=== PATIENT | male | born 1965 | race Caucasian/White ===

== ENCOUNTER 2018-12-05 12:25 | Emergency (ER) | payer BC, OTHER ==
--- NOTE | 2018-12-05 12:29 | EDM.PDOC ---
ED HPI GENERAL MEDICAL PROBLEM - General Chief Complaint: General Stated Complaint: bee sting to left cheek Time Seen by Provider: 12/05/18 12:28 Source of Information: Reports: Patient. Denies: Old Records (No [facility] records available) History Limitations: Reports: No Limitations - History of Present Illness INITIAL COMMENTS - FREE TEXT/NARRATIVE: Patient drove himself to the emergency room via private automobile for evaluation of a Workmen's Compensation injury, which occurred at about 11:45 AM this morning. He was performing his normal work duties when he was accidentally stung in the left cheek/periorbital region by either a bee or wasp. He did try to get the stinger out, however he did not find one prior to arrival. No other treatment or medications prior to arrival. He does not have a previous history of significant allergic reactions to insect stings or bites. Patient denies any dysphagia, dyspnea, angioedema, or other allergic-type symptoms. He rates his discomfort at 4/10. His tetanus booster is apparently up-to-date with last immunization one year ago by his history. The patient denies any chest pain/ pressure, heart flutter, dizziness, orthostasis, orthopnea, diaphoresis, paresthesias, recent decreased exercise tolerance, or any other anginal-type symptoms. No recent history of abdominal pain, heartburn, nausea, diarrhea, melena, gross hematochezia, or any food intolerance, including fatty foods, etc.. The patient also denies any recent fever, cough, wheezing, dyspnea, etc.. He denies any previous problems with his blood pressure or history of hypertension. Onset: Today, Sudden Onset Date: 12/05/18 Onset Time: 11:45 Duration: Constant Location: Reports: Face (As above) Quality: Reports: Ache, Burning Severity: Mild Improves with: Reports: None Worsens with: Reports: None Context: Reports: Other (As above). Denies: Sick Contact, Trauma Associated Symptoms: Reports: Rash. 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 [No Known Home Meds] 12/05/18 [History] Past Medical History Cardiovascular History: Reports: None. Denies: Hypertension Musculoskeletal History: Reports: Arthritis, Back Pain, Chronic, Fracture, Osteoarthritis, Other (See Below) Other Musculoskeletal History: Previous left knee meniscal tear requiring arthroscopic surgery in about 2009 as below. Previous midshaft left leg angulated open tibial fracture in his early 20s requiring surgery as below. Endocrine/Metabolic History: Reports: Obesity/BMI 30+ - Past Surgical History HEENT Surgical History: Reports: Oral Surgery, Other (See Below) Other HEENT Surgeries/Procedures: Multiple teeth extractions Male Surgical History: Reports: Circumcision, Other (See Below) Other Male Surgeries/Procedures: Circumcision as an infant. Musculoskeletal Surgical History: Reports: Arthroscopic Knee, Arthroscopic Procedure, ORIF, Other (See Below) Other Musculoskeletal Surgeries/Procedures:: Arthroscopic left knee meniscal repair in about 2009. ORIF of the left tibial fracture in his early 20s as above. 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 ED EXAM, GENERAL - Physical Exam Exam: See Below Exam Limited By: No Limitations General Appearance: Alert, WD/WN, No Apparent Distress Eye Exam: Bilateral Eye: EOMI, Normal Inspection, PERRL Ears: Normal External Exam, Normal Canal, Hearing Grossly Normal, Normal TMs Nose: Normal Inspection, Normal Mucosa, No Blood Throat/Mouth: Normal Inspection, Normal Lips, Normal Teeth (Multiple missing teeth), Normal Gums, Normal Oropharynx, Normal Voice, No Airway Compromise, Other (No uvular swelling or evidence of angioedema). No: Dysphagia, Perioral Cyanosis Head: Normocephalic, Facial Swelling (4 cm in diameter area of trace erythema and mild to moderate swelling over the left cheek and periorbital region with small stinger noted in the left lateral cheek region), Facial Tenderness ( Minimal palpation pain at sting site). No: Sinus Tenderness Neck: Normal Inspection, Supple, Non-Tender, Full Range of Motion. No: Lymphadenopathy (L), Lymphadenopathy (R), Thyromegaly Respiratory/Chest: No Respiratory Distress, Lungs Clear, Normal Breath Sounds, No Accessory Muscle Use, Chest Non-Tender. No: Pleural Rub, Retractions Cardiovascular: Normal Peripheral Pulses, Regular Rate, Rhythm, No Edema, No Gallop, No JVD, No Murmur, No Rub. No: Gallop/S3, Gallop/S4, Friction Rub Peripheral Pulses: 2+: Radial (L), Radial (R) GI/Abdominal: Normal Bowel Sounds, Soft, Non-Tender, No Organomegaly, No Distention, No Abnormal Bruit, No Mass, Other (Obese). No: Guarding (Male) Exam: Deferred Rectal (Males) Exam: Deferred Back Exam: Normal Inspection, Full Range of Motion. No: CVA Tenderness (L), CVA Tenderness (R), Muscle Spasm Extremities: Normal Inspection, Normal Range of Motion, Non-Tender, No Pedal Edema, Normal Capillary Refill. No: Jonh's Sign Neurological: Alert, Oriented, CN II-XII Intact, Normal Cognition, Normal Gait, No Motor/Sensory Deficits Psychiatric: Normal Affect, Normal Mood Skin Exam: Erythema (As above), Wound/Incision (As above). No: Diaphoretic, Lymphangitis Lymphatic: No Adenopathy Course - Vital Signs Last Recorded V/S: Last Vital Signs Temp 36.8 C 12/05/18 12:27 Pulse 86 12/05/18 12:45 Resp 18 12/05/18 12:27 BP 136/89 12/05/18 12:45 Pulse Ox 100 12/05/18 12:27 Vital Signs - 24 hr 12/05/18 12/05/18 12:27 12:45 Temperature [ 36.8 C Temporal] Pulse, 100 86 Peripheral [ Pulse Oximetry] Respiratory 18 Rate Blood Pressure 141/92 H 136/89 [Left Arm] O2 Sat by Pulse 100 Oximetry - Orders/Labs/Meds Orders: Active Orders 24 hr Category Date Time Status Vaccines to be Administered [RC] PER UNIT ROUTINE Care 12/05/18 13:31 Active Obtain Past Medical Record [OM.PC] Routine Oth 12/05/18 12:37 Active Labs: None Meds: Medications Discontinued Medications Generic Name Dose Route Start Last Admin Trade Name Hanane PRN Reason Stop Dose Admin Diphtheria/Tetanus/Acell Pertussis 0.5 ml 12/05/18 13:31 12/05/18 13:40 Adacel IM 12/05/18 13:32 0.5 ml .ONCE ONE Administration Methylprednisolone Acetate 80 mg 12/05/18 12:37 12/05/18 13:25 Depo-Medrol IM 12/05/18 12:38 80 mg ONETIME ONE Administration - Radiology Interpretation Free Text/Narrative:: None Departure - Departure Time of Disposition: 13:55 Disposition: Home, Self-Care 01 Condition: Good Clinical Impression: Obesity (BMI 35.0-39.9 without comorbidity), Elevated blood pressure reading Bee sting reaction Qualifiers: Encounter type: initial encounter Injury intent: accidental or unintentional Qualified Code(s): T63.441A - Toxic effect of venom of bees, accidental ( unintentional), initial encounter Osteoarthritis Qualifiers: Osteoarthritis location: multiple joints - Discharge Information *PRESCRIPTION DRUG MONITORING PROGRAM REVIEWED*: Not Applicable *COPY OF PRESCRIPTION DRUG MONITORING REPORT IN PATIENT MIRNA: Not Applicable Instructions: Bee, Wasp, or Hornet Sting, Adult Referrals: PCP,Unknown [Primary Care Provider] - Forms: ED Department Discharge, ED Return to Work/School Form Additional Instructions: 1. Follow up with your regular provider in 10-14 days as needed, if symptoms persist. Bring these discharge instructions with you to that visit.. 2. Tylenol 650 mg by mouth every 4 hours and/or OTC ibuprofen 2-3 tabs by mouth every 6 hours with food as directed./needed. You may stagger these medications for 48-72 hours only, which essentially means that you are receiving a pain medication about every 2 hours. 3. Antibacterial soap wash/soak with subsequent antibacterial dressing such as Neosporin, etc. as directed 2 times per day until the wound site completely heals. Keep the area clean and dry with activity restrictions as discussed. Never use hydrogen peroxide for wound care. 4. Work excuse- See Form 5. Sedation precautions with Benadryl as discussed 6. Continue to observe your blood pressures closely with your regular provider as discussed 7. Ice Packs as needed to left cheek as discussed 8. Immediately after this visit verify that your cellular telephone's voicemail has been activated and is empty. Also verify that your home telephone 's answering machine is operating properly and has space to receive messages. Note that it is sometimes necessary for us to be able to contact you at a later date to discuss your medical care. 9. Please remember that we are ALWAYS here for you and want to answer any questions you may have. Feel free to call the hospital any time and we call you back MARCIA. - Problem List & Annotations (1) Bee sting reaction SNOMED Code(s): 710240655, 421426601 Code(s): T63.441A - TOXIC EFFECT OF VENOM OF BEES, ACCIDENTAL, INIT Status : Acute Priority: High Current Visit: Yes Onset Date: 12/05/18 Annotation/Comment:: Stinger was removed with forceps after cleansing with alcohol wipes with minimal difficulty and without complications. IM Depo-Medrol given in the emergency room. The patient did not wish to have an IM Benadryl injection. No evidence of angioedema or other anaphylactic reaction, although precautions were given to the patient. Symptomatic relief with Benadryl and wound care as per discharge instructions were extensively discussed. Sedation precautions were given. Work excuse and Workmen's Compensation forms were completed. The patient thought that he had a tetanus booster about one year ago at the [facility] in [place], however no evidence of previous tetanus booster per [facility]. DTaP was given. Qualifiers: Encounter type: initial encounter Injury intent: accidental or unintentional Qualified Code(s): T63.441A - Toxic effect of venom of bees, accidental (unintentional), initial encounter (2) Elevated blood pressure reading SNOMED Code(s): 77512223 Code(s): R03.0 - ELEVATED BLOOD-PRESSURE READING, W/O DIAGNOSIS OF HTN Status: Acute Priority: Medium Current Visit: Yes Onset Date: 12/05/18 Annotation/Comment:: Improved prior to discharge without therapy. No previous history of hypertension. Continue to observe closely by his regular provider. (3) Obesity (BMI 35.0-39.9 without comorbidity) SNOMED Code(s): 737515367, 663890939 Code(s): E66.9 - OBESITY, UNSPECIFIED Status: Chronic Priority: Medium Current Visit: Yes Annotation/Comment:: Weight loss in moderation advisable. Close follow-up by regular provider. (4) Osteoarthritis SNOMED Code(s): 456685598 Code(s): M19.90 - UNSPECIFIED OSTEOARTHRITIS, UNSPECIFIED SITE Status: Chronic Priority: Medium Current Visit: Yes Annotation/Comment:: Stable by history. Qualifiers: Osteoarthritis location: multiple joints - Problem List Review Problem List Initiated/Reviewed/Updated: Yes - My Orders Last 24 Hours: My Active Orders 12/05/18 12:37 Obtain Past Medical Record [OM.PC] Routine 12/05/18 13:31 Vaccines to be Administered [RC] PER UNIT ROUTINE - Assessment/Plan Last 24 Hours: My Active Orders 12/05/18 12:37 Obtain Past Medical Record [OM.PC] Routine 12/05/18 13:31 Vaccines to be Administered [RC] PER UNIT ROUTINE Assessment:: As above Plan: As above. Extensive precautions were given to the patient, who is in agreement with the treatment plan. See Patient Instructions for further treatment and plan.
[2018-12-05] MEDS ORDERED: methylPREDNISolone Acetate 80 MG/ML SDV IM ONE (12:37)
[2018-12-05] MEDS ORDERED: Diphtheria,Pertussis(Acell),Tetanus Vaccine 0.5 ML SDV IM ONE (13:31)
== END 2018-12-05 13:53 | disposition home or self-care (01) ==
LOC: LL.ED 12:25
DX: T63.441A Toxic effect of venom of bees, accidental (unintentional), initial encounter (principal); R03.0 Elevated blood-pressure reading, without diagnosis of hypertension; E66.9 Obesity, unspecified; Z68.35 Body mass index [BMI] 35.0-35.9, adult; Z23 Encounter for immunization
CPT/HCPCS: 90471; 90715; 96374; 99282; J1040; 99283

== ENCOUNTER 2019-06-09 23:35 | Observation (INO) | payer BC, OTHER ==
[2019-06-09] MEDS ORDERED: Sodium Chloride 0.9% 10 ML Syringe FLUSH PRN (23:48)
[2019-06-09] MEDS ORDERED: Ketorolac 30 MG/ML SDV IVPUSH ONE (23:59)
[2019-06-10] MEDS ORDERED: Morphine 2 MG/ML Syringe IVPUSH ONE (00:13)
[2019-06-10] MEDS ORDERED: Ondansetron 4 MG/2 ML SDV IVPUSH ONE (00:13)
[2019-06-10] MEDS ORDERED: Sodium Chloride 0.9% 1,000 ML IV ONE (00:14)
--- NOTE | 2019-06-10 00:19 | EDM.PDOC ---
ED HPI GENERAL MEDICAL PROBLEM - General Chief Complaint: Back Pain or Injury Stated Complaint: low back pain Time Seen by Provider: 06/09/19 23:59 Source of Information: Reports: Patient History Limitations: Reports: No Limitations - History of Present Illness INITIAL COMMENTS - FREE TEXT/NARRATIVE: Patient complains of sharp steady back pain. Describes it as centralized/ lumbar area, radiating around sides to front/center of abdomen. Radiates around left side more than right. Nothing specifically makes it better or worse ( position/going to bathroom/eating/drinking). Emesis x2 today. Pain started last night, went away, then returned today. Denies chronic medical problems. No fevers/chills No history of similar pain in past. No bowel changes or urinary changes. No neuro changes. Hx of back issues per medical record. Lower Back Pain Score (Numeric/FACES): 10 - Related Data Allergies Allergy/AdvReac Type Severity Reaction Status Date / Time No Known Allergies Allergy Verified 06/09/19 23:41 Home Meds: Home Meds Meloxicam [Mobic] 7.5 mg PO BID 06/09/19 [History] Past Medical History Cardiovascular History: Reports: None. Denies: Hypertension Musculoskeletal History: Reports: Arthritis, Back Pain, Chronic, Fracture, Osteoarthritis, Other (See Below) Other Musculoskeletal History: Previous left knee meniscal tear requiring arthroscopic surgery in about 2009 as below. Previous midshaft left leg angulated open tibial fracture in his early 20s requiring surgery as below. Endocrine/Metabolic History: Reports: Obesity/BMI 30+ - Past Surgical History HEENT Surgical History: Reports: Oral Surgery, Other (See Below) Other HEENT Surgeries/Procedures: Multiple teeth extractions Male Surgical History: Reports: Circumcision, Other (See Below) Other Male Surgeries/Procedures: Circumcision as an . Musculoskeletal Surgical History: Reports: Arthroscopic Knee, Arthroscopic Procedure, ORIF, Other (See Below) Other Musculoskeletal Surgeries/Procedures:: Arthroscopic left knee meniscal repair in about 2009. ORIF of the left tibial fracture in his early 20s as above. 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 Denies: Shortness of Breath Cardiovascular: Reports: No Symptoms. Denies: Chest Pain GI/Abdominal: Reports: Nausea, Vomiting, Other (back pain radiates towards front of abdomen). Denies: Constipation, Diarrhea, Hematochezia : Reports: No Symptoms Musculoskeletal: Reports: Back Pain Skin: Reports: No Symptoms Neurological: Reports: No Symptoms Psychiatric: Reports: No Symptoms ED EXAM, GENERAL - Physical Exam Exam: See Below Exam Limited By: No Limitations General Appearance: Alert, Moderate Distress (restless), Obese Eye Exam: Bilateral Eye: EOMI, PERRL Ears: Hearing Grossly Normal Nose: No: Nasal Deformity, Nasal Swelling, Nasal Drainage Throat/Mouth: Normal Lips, Normal Voice, No Airway Compromise Head: Atraumatic, Normocephalic Neck: Supple, Non-Tender Respiratory/Chest: No Respiratory Distress, Lungs Clear, Normal Breath Sounds, No Accessory Muscle Use, Chest Non-Tender Cardiovascular: No Murmur, Tachycardia GI/Abdominal: Normal Bowel Sounds, Soft, Non-Tender, Other (abdomen obese) (Male) Exam: Deferred Rectal (Males) Exam: Deferred Back Exam: No: CVA Tenderness (L), CVA Tenderness (R), Muscle Spasm, Paraspinal Tenderness, Vertebral Tenderness Extremities: Normal Inspection, Normal Range of Motion, Non-Tender, No Pedal Edema, Normal Capillary Refill, Other (negative straight leg raise) Neurological: Alert, Oriented, Normal Cognition, No Motor/Sensory Deficits Psychiatric: Anxious Skin Exam: Warm, Dry, Intact, Normal Color EKG INTERPRETATION EKG Date: 06/10/19 Time: 02:54 Rhythm: Other (Sinus tach 1st degree AV block) Rate (Beats/Min): 102 [place]: Normal P-Wave: Present QRS: Normal ST-T: Normal QT: Prolonged Comparison: NA - No Prior EKG Course - Vital Signs Last Recorded V/S: Last Vital Signs Temp 35.1 C L 06/09/19 23:36 Pulse 108 H 06/09/19 23:36 Resp 20 06/09/19 23:36 BP 152/102 H 06/09/19 23:36 Pulse Ox 99 06/09/19 23:36 - Orders/Labs/Meds Orders: Active Orders 24 hr Category Date Time Status Abdomen Pelvis wo Cont [CT] Stat Exams 06/10/19 00:12 Taken Morphine Med 06/10/19 00:23 Active 2 mg IVPUSH Q1H PRN Sodium Chloride 0.9% [Saline Flush] Med 06/09/19 23:48 Active 10 ml FLUSH ASDIRECTED PRN Saline Lock Insert [OM.PC] Routine Oth 06/09/19 23:48 Ordered Medication Orders Morphine Sulfate (Morphine) 2 mg IVPUSH Q1H PRN PRN Reason: Pain Last Admin: 06/10/19 02:08 Dose: 2 mg Sodium Chloride (Saline Flush) 10 ml FLUSH ASDIRECTED PRN PRN Reason: Keep Vein Open Labs: Laboratory Tests 06/09/19 06/10/19 06/10/19 Range/Units 23:49 00:15 00:15 WBC 8.5 (4.0-10.2) K/uL RBC 4.47 (4.33-5.41) M/uL Hgb 14.6 (13.1-16.8) g/dL Hct 42.6 (39.0-49.0) % MCV 95.3 (84.0-98.0) fL MCH 32.7 (28.2-33.3) pg MCHC 34.3 (31.7-36.0) g/dL RDW 13.5 (11.2-14.1) % Plt Count 317 (150-350) K/uL Neut % (Auto) 74.1 (45.0-80.0) % Lymph % (Auto) 15.2 (10.0-50.0) % [place] % (Auto) 6.6 (2.0-14.0) % Eos % (Auto) 0.7 (0.0-5.0) % Baso % (Auto) 3.4 H (0.0-2.0) % Neut # (Auto) 6.31 (1.40-7.00) K/uL Lymph # (Auto) 1.29 (0.50-3.50) K/uL [place] # (Auto) 0.56 (0.00-1.00) K/uL Eos # (Auto) 0.06 (0.00-0.50) K/uL Baso # (Auto) 0.29 H (0.00-0.20) K/uL Sodium 140 (136-145) mmol/L Potassium 4.2 (3.5-5.1) mmol/L Chloride 103 (98-107) mmol/L Carbon Dioxide 26.9 (21.0-32.0) mmol/L BUN 18 (7-18) mg/dL Creatinine 0.91 (0.51-1.17) mg/dL Est Cr Clr Drug Dosing 101.14 mL/min Estimated GFR (MDRD) > 60 mL/min Glucose 125 H (74-106) mg/dL Calcium 8.8 (8.5-10.1) mg/dL Magnesium (1.8-2.4) mg/dL Total Bilirubin 0.2 (0.2-1.0) mg/dL AST 21 (15-37) U/L ALT 33 (12-78) U/L Alkaline Phosphatase 81 (46-116) IU/L Total Protein 8.1 (6.4-8.2) g/dL Albumin 3.9 (3.4-5.0) g/dL Specimen Type Urinvoid Urine Color Light yellow Urine Appearance Cloudy Urine pH 7.0 (5.0-9.0) Ur Specific [place] 1.025 (1.005-1.030) Urine Protein Negative (NEGATIVE) mg/dL Urine Glucose (UA) Negative (NEGATIVE) mg/dL Urine Ketones Negative (NEGATIVE) mg/dL Urine Occult Blood Negative (NEGATIVE) Urine Nitrite Negative (NEGATIVE) Urine Bilirubin Negative (NEGATIVE) Urine Urobilinogen 0.2 (0.2-1.0) E.U./dL Ur Leukocyte Esterase Negative (NEGATIVE) Urine RBC 0-5 /HPF Urine WBC 0-5 /HPF Ur Epithelial Cells Rare /LPF Amorphous Sediment Moderate H (0/HPF) /HPF Urine Bacteria Not seen (NONE TO FEW) /HPF 06/10/19 Range/Units 00:15 WBC (4.0-10.2) K/uL RBC (4.33-5.41) M/uL Hgb (13.1-16.8) g/dL Hct (39.0-49.0) % MCV (84.0-98.0) fL MCH (28.2-33.3) pg MCHC (31.7-36.0) g/dL RDW (11.2-14.1) % Plt Count (150-350) K/uL Neut % (Auto) (45.0-80.0) % Lymph % (Auto) (10.0-50.0) % [place] % (Auto) (2.0-14.0) % Eos % (Auto) (0.0-5.0) % Baso % (Auto) (0.0-2.0) % Neut # (Auto) (1.40-7.00) K/uL Lymph # (Auto) (0.50-3.50) K/uL [place] # (Auto) (0.00-1.00) K/uL Eos # (Auto) (0.00-0.50) K/uL Baso # (Auto) (0.00-0.20) K/uL Sodium (136-145) mmol/L Potassium (3.5-5.1) mmol/L Chloride (98-107) mmol/L Carbon Dioxide (21.0-32.0) mmol/L BUN (7-18) mg/dL Creatinine (0.51-1.17) mg/dL Est Cr Clr Drug Dosing mL/min Estimated GFR (MDRD) mL/min Glucose (74-106) mg/dL Calcium (8.5-10.1) mg/dL Magnesium 1.9 (1.8-2.4) mg/dL Total Bilirubin (0.2-1.0) mg/dL AST (15-37) U/L ALT (12-78) U/L Alkaline Phosphatase (46-116) IU/L Total Protein (6.4-8.2) g/dL Albumin (3.4-5.0) g/dL Specimen Type Urine Color Urine Appearance Urine pH (5.0-9.0) Ur Specific [place] (1.005-1.030) Urine Protein (NEGATIVE) mg/dL Urine Glucose (UA) (NEGATIVE) mg/dL Urine Ketones (NEGATIVE) mg/dL Urine Occult Blood (NEGATIVE) Urine Nitrite (NEGATIVE) Urine Bilirubin (NEGATIVE) Urine Urobilinogen (0.2-1.0) E.U./dL Ur Leukocyte Esterase (NEGATIVE) Urine RBC /HPF Urine WBC /HPF Ur Epithelial Cells /LPF Amorphous Sediment (0/HPF) /HPF Urine Bacteria (NONE TO FEW) /HPF Meds: Medications Generic Name Dose Route Start Last Admin Trade Name Frebeatrice PRN Reason Stop Dose Admin Morphine Sulfate 2 mg 06/10/19 00:23 06/10/19 02:08 Morphine IVPUSH 2 mg Q1H PRN Administration Pain Sodium Chloride 10 ml 06/09/19 23:48 Saline Flush FLUSH ASDIRECTED PRN Keep Vein Open Discontinued Medications Generic Name Dose Route Start Last Admin Trade Name Freq PRN Reason Stop Dose Admin Sodium Chloride 1,000 mls @ 500 mls/hr 06/10/19 00:14 06/10/19 00:36 Normal Saline IV 06/10/19 02:13 500 mls/hr .BOLUS ONE Administration Ketorolac Tromethamine 30 mg 06/09/19 23:59 06/10/19 00:01 Toradol IVPUSH 06/10/19 00:00 30 mg ONETIME ONE Administration Morphine Sulfate 2 mg 06/10/19 00:13 06/10/19 00:38 Morphine IVPUSH 06/10/19 00:14 2 mg ONETIME ONE Administration Ondansetron HCl 4 mg 06/10/19 00:13 Zofran IVPUSH 06/10/19 00:14 ONETIME ONE Tamsulosin HCl 0.4 mg 06/10/19 00:30 06/10/19 00:38 Flomax PO 06/10/19 00:31 0.4 mg ONETIME ONE Administration - Radiology Interpretation CT Results Date: 06/10/19 CT Results Time: 01:35 (No obvious contribution to pain noted on CT. Gallstones present. L4-L5 changes. No acute processes identified. ) - Re-Assessments/Exams Free Text/Narrative Re-Assessment/Exam: No focal findings on exam. Unable to elicit tenderness with palpation/ reproduce symptoms over patient's back/abdomen. UA normal. CBC/Chem overall unremarkable. Plan at this time is to give Toradol/MS/Zofran and get noncontrast scan to look for kidney stone/other abnormalities. 06/10/19 02:50 No obvious focal cause for patient's pain complaint identified on abdominal CT. Gallstones are present. No evidence of kidney stone. No recommendation made by Radiology for new scan using contrast. He has no pain with palpation of abdomen. Only could elicit mild discomfort with very sharp percussion of mid back area, left greater than right. No focal spine tenderness. Pain improved for awhile with the Toradol/MS but then returned. Patient uncomfortable. Differential includes musculoskeletal pain with radiation around sides/ radicular component. Again, no evidence of kidney stone. May need to consider atypical presentation for gall stone. Will admit observation. Consider US study of GB later today when US available. Departure - Departure Time of Disposition: 02:56 Disposition: Refer to Observation Condition: Good Clinical Impression: Mid-back pain, acute, Elevated blood pressure reading, Gallstones - Discharge Information *PRESCRIPTION DRUG MONITORING PROGRAM REVIEWED*: Not Applicable *COPY OF PRESCRIPTION DRUG MONITORING REPORT IN PATIENT [facility]: Not Applicable Forms: ED Department Discharge Sepsis Event Note - Evaluation Sepsis Screening Result: No Definite Risk - Focused Exam Vital Signs: Vital Signs Temp Pulse Resp BP Pulse Ox 06/09/19 23:36 35.1 C L 108 H 20 152/102 H 99 Date Exam was Performed: 06/10/19 Time Exam was Performed: 02:24 - Problem List & Annotations (1) Mid-back pain, acute SNOMED Code(s): 595274500 Code(s): M54.9 - DORSALGIA, UNSPECIFIED Status: Acute Priority: High Current Visit: Yes Onset Date: 06/09/19 Annotation/Comment:: Pain complaint near thoraco/lumbar junction. Radiates around sides to front of abdomen at times. Difficult to reproduce with palpation/percussion. CT abdomen negative for kidney stone. Noted to have gallstones present. Uncertain etiology. (2) Elevated blood pressure reading SNOMED Code(s): 66888053 Code(s): R03.0 - ELEVATED BLOOD-PRESSURE READING, W/O DIAGNOSIS OF HTN Status: Acute Priority: Medium Current Visit: Yes Onset Date: 12/05/18 Annotation/Comment:: Suspect elevation related to pain complaint. Observe trends. (3) Osteoarthritis SNOMED Code(s): 880179146 Code(s): M19.90 - UNSPECIFIED OSTEOARTHRITIS, UNSPECIFIED SITE Status: Chronic Priority: Medium Current Visit: No Annotation/Comment:: No acute changes per patient Qualifiers: Osteoarthritis location: multiple joints (4) Gallstones SNOMED Code(s): 627228966 Code(s): K80.20 - CALCULUS OF GALLBLADDER W/O CHOLECYSTITIS W/O OBSTRUCTION Status: Acute Priority: Medium Current Visit: Yes Annotation/Comment:: Noted to be present on CT scan. Uncertain if contributing to pain complaint. Anticipate US study of abdomen later today to further evaluate GB. (5) Obesity (BMI 35.0-39.9 without comorbidity) SNOMED Code(s): 002141170, 275776208 Code(s): E66.9 - OBESITY, UNSPECIFIED Status: Chronic Priority: Medium Current Visit: No Annotation/Comment:: Weight loss in moderation advisable. Close follow-up by regular provider. - Problem List Review Problem List Initiated/Reviewed/Updated: Yes - My Orders Last 24 Hours: My Active Orders 06/09/19 23:48 Sodium Chloride 0.9% [Saline Flush] 10 ml FLUSH ASDIRECTED PRN Saline Lock Insert [OM.PC] Routine 06/10/19 00:12 Abdomen Pelvis wo Cont [CT] Stat 06/10/19 00:23 Morphine 2 mg IVPUSH Q1H PRN - Assessment/Plan Admission H&P: Please use this note as an admission H&P Last 24 Hours: My Active Orders 06/09/19 23:48 Sodium Chloride 0.9% [Saline Flush] 10 ml FLUSH ASDIRECTED PRN Saline Lock Insert [OM.PC] Routine 06/10/19 00:12 Abdomen Pelvis wo Cont [CT] Stat 06/10/19 00:23 Morphine 2 mg IVPUSH Q1H PRN Assessment:: as above Plan: as above. Additional labs requested, including amylase/lipase. Consider US study later this morning. Observe for additional changes. Continue pain management. Patient's care to be taken over by this morning. Patient stable and suitable for general supervision
[2019-06-10] MEDS ORDERED: Morphine 2 MG/ML Syringe IVPUSH PRN (00:23)
[2019-06-10] MEDS ORDERED: Tamsulosin 0.4 MG Cap.ER PO ONE (00:30)
[2019-06-10 00:39] LABS: CHLORIDE,CL 103 mmol/L (98-107); SODIUM,NA 140 mmol/L (136-145)
[2019-06-10] MEDS ORDERED: methylPREDNISolone Sodium Succinate 125 MG/2 ML SDV IVPUSH ONE (02:43)
[2019-06-10] MEDS ORDERED: Ondansetron 4 MG/2 ML SDV IVPUSH PRN (02:46)
[2019-06-10] MEDS ORDERED: Cyclobenzaprine 10 MG Tab PO ONE (02:46)
[2019-06-10] MEDS: Ketorolac 30 MG/ML SDV IVPUSH SCH ×2 (07:16→12:28)
--- NOTE | 2019-06-10 12:10 | PCM.DCSUM1 ---
Discharge Summary - Hospital Course HPI Initial Comments: See emergency room note/admission H&P Brief History: See emergency room note/admission H&P Diagnosis: Stroke: No Modified Kechi Scale: No Symptoms at All Modified Kechi Scale Score: 0 - Discharge Data Discharge Date: 06/10/19 Discharge Disposition: Home, Self-Care 01 Condition: Good - Referral to Home Health Primary Care Physician: PCP None - Discharge Diagnosis/Problem(s) (1) Low back pain SNOMED Code(s): 482263123 ICD Code: M54.5 - LOW BACK PAIN Status: Acute Current Visit: Yes Problem Details: He did receive one dose of IV Solu-Medrol with aggressive IV Toradol, IV morphine, and oral Flexeril therapy with complete resolution of symptoms prior to discharge. 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 Right L4 radiculopathy by CT scan, however not symptomatic at this time. Close follow-up by regular provider with consideration of physical therapy, occupational therapy, orthopedic consultation, etc. depending on his clinical course. Otherwise symptomatic relief as per discharge instructions. Sedation precautions with Flexeril were discussed. Qualifiers: Chronicity: acute Back pain laterality: bilateral Sciatica presence: without sciatica Qualified Code(s): M54.5 - Low back pain (2) Osteoarthritis SNOMED Code(s): 315605816 ICD Code: M19.90 - UNSPECIFIED OSTEOARTHRITIS, UNSPECIFIED SITE Status: Chronic Priority: Medium Current Visit: Yes Problem Details: Complete resolution of patient's low back pain with aggressive therapy as above. Continue to observe closely by regular providers. Otherwise stable by history Qualifiers: Osteoarthritis location: multiple joints (3) Cholelithiasis SNOMED Code(s): 403859325 ICD Code: K80.20 - CALCULUS OF GALLBLADDER W/O CHOLECYSTITIS W/O OBSTRUCTION Status: Acute Priority: High Current Visit: Yes Onset Date: 06/10/19 Problem Details: Incidental finding in CT scan of the abdomen and pelvis with no evidence of urolithiasis, etc. Note that patient is completely nonsymptomatic today with normal amylase and lipase during this hospitalization. Low-fat, low-cholesterol diet at discharge. No direct indication for abdominal ultrasound today secondary to his resolve symptoms as above. Close follow-up by regular provider with surgical consultation depending on his clinical course. No exacerbation of patient's back pain or other symptoms with IV morphine during this hospitalization essentially eliminating gallbladder disease as etiology of his current symptoms. Qualifiers: Cholelithiasis location: gallbladder Cholecystitis presence: without cholecystitis (4) Obesity (BMI 35.0-39.9 without comorbidity) SNOMED Code(s): 125331604, 382781474 ICD Code: E66.9 - OBESITY, UNSPECIFIED Status: Chronic Priority: Medium Current Visit: Yes Problem Details: Weight loss in moderation advisable. Close follow-up by regular provider as per discharge instructions. Consider lipid profile. (5) First degree AV block SNOMED Code(s): 964738575 ICD Code: I44.0 - ATRIOVENTRICULAR BLOCK, FIRST DEGREE Status: Acute Priority: Medium Current Visit: Yes Onset Date: 06/10/19 Problem Details: No chest pain or anginal type symptoms with newly diagnosed first-degree AV block by EKG on admission. Observe for now. Note mild tachycardia time of discharge with medication adjustment, including initiation of low-dose Tenormin with caution at discharge. (6) Hypertension SNOMED Code(s): 52618796 ICD Code: I10 - ESSENTIAL (PRIMARY) HYPERTENSION Status: Acute Priority: High Current Visit: Yes Onset Date: 06/10/19 Problem Details: Initiate Tenormin at discharge as above. Close follow-up by regular provider. Qualifiers: Hypertension type: essential hypertension Qualified Code(s): I10 - Essential (primary) hypertension (7) Hepatic cyst SNOMED Code(s): 29256383 ICD Code: K76.89 - OTHER SPECIFIED DISEASES OF LIVER Status: Acute Priority: Medium Current Visit: Yes Onset Date: 06/10/19 Problem Details: Incidental finding by CT scan as below. Observe for now. Note normal LFTs. (8) Diverticulosis SNOMED Code(s): 773011368 ICD Code: K57.90 - DVRTCLOS OF INTEST, PART UNSP, W/O PERF OR ABSCESS W/O BLEED Status: Chronic Priority: Medium Current Visit: Yes Onset Date: Problem Details: Incidental finding by CT scan as below. Nonsymptomatic. Consider screening ultrasound, if this has not be conducted to this point - Patient Summary/Data Operative Procedure(s) Performed: None Complications: None Consults: None Labs Pending at D/C: None Recommended Follow-up Testing/Procedures: As per discharge instructions Planned Operative Procedure(s) after DC: None Hospital Course: The patient was placed in observation status for pain control of his bilateral low back pain with CT scan results as above/below. Patient responded extremely well to IV therapy as above with no complications during this hospitalization. - Patient Instructions Diet: Heart Healthy Diet Diet, Other: Strict low-fat, low-cholesterol, diverticulosis Activity: Apply Ice, As Tolerated Driving: May Drive Today (However not when using Flexeril) Showering/Bathing: May Shower Notify Provider of: Increased Pain, Nausea and/or Vomiting Other/Special Instructions: 1. Followup with your regular provider in 7-10 days as directed for reevaluation and recommended repeat CBC, comprehensive metabolic panel, amylase, lipase, TSH, 12 hour fasting lipid profile, EKG, and complete lumbar x-rays. Bring these discharge instructions with you to that visit. 2. BenGay or equivalent, heating pad, and/or ice packs as directed. 3. Tylenol 650 mg by mouth every 4 hours as needed and you may alternate this with your Mobic. 4. Further workup of your gallbladder disease depending on your clinical course and symptoms. Strict low-fat, low-cholesterol diet as above. 5. Sedation precautions with Flexeril as discussed. 6. Immediately after this visit verify that your cellular telephone's voicemail has been activated and is empty. Also verify that your home telephone's answering machine is operating properly and has space to receive messages. Note that it is sometimes necessary for us to be able to contact you at a later date to discuss your medical care. 7. Please remember that we are ALWAYS here for you and want to answer any questions you may have. Feel free to call the hospital any time and we call you back MARCIA. 8. Consider physical therapy/ occupational therapy and/or orthopedic surgeon/neurology consultations for your low back pain depending on your clinical course and symptoms. 9. Consider screening colonoscopy, if this has not been performed to this date. - Discharge Plan *PRESCRIPTION DRUG MONITORING PROGRAM REVIEWED*: Not Applicable *COPY OF PRESCRIPTION DRUG MONITORING REPORT IN PATIENT MIRNA: Not Applicable Prescriptions/Med Rec: Atenolol [Tenormin] 25 mg PO DAILY #30 tablet Home Medications: Home Meds Meloxicam [Mobic] 7.5 mg PO BID 06/09/19 [History] Atenolol [Tenormin] 25 mg PO DAILY #30 tablet 06/10/19 [Rx] Oxygen Therapy Mode: Room Air Patient Handouts: Chronic Back Pain, [id number], Cholelithiasis, [id number] , Hypertension, [id number], Diverticulosis, Heart-Healthy Eating Plan, Easy-to -Read, Fat and Cholesterol Restricted Eating Plan, [id number] Forms: ED Department Discharge Referrals: PCP,None [Primary Care Provider] - - Discharge Summary/Plan Comment DC Time >30 min.: Yes (Coordination of care ) Discharge Summary/Plan Comment: As above. Extensive precautions were given to the patient, who is in agreement with the treatment plan. See Patient Instructions for further treatment and plan. - General Info Date of Service: 06/10/19 Admission Dx/Problem (Free Text: 1. Low back pain 2. Hypertension Functional Status: Reports: Pain Controlled, Tolerating Diet, Ambulating, Urinating, New Symptoms. Denies: Incentive Spirometry Numeric/FACES Score: 0 - Review of Systems General: Reports: No Symptoms. Denies: Fever, Weakness, Fatigue, Malaise, Chills, Night Sweats, Appetite HEENT: Reports: No Symptoms. Denies: Ear Pain, Headaches, Sinus Congestion, Rhinitis, Visual Changes Pulmonary: Reports: No Symptoms. Denies: Shortness of Breath, Pleuritic Chest Pain, Cough, Sputum, Hemoptysis, Wheezing Cardiovascular: Reports: No Symptoms. Denies: Chest Pain, Palpitations, Dyspnea on Exertion, Orthopnea, PND, Edema, Lightheadedness Gastrointestinal: Reports: No Symptoms, Other (No bowel movement since admission ). Denies: Abdominal Pain, Constipation, Decreased Appetite, Diarrhea, Difficulty Swallowing, Flatus, Hematochezia, Melena, Nausea, Vomiting Genitourinary: Reports: No Symptoms. Denies: Dysuria, Frequency, Burning, Urgency, Incontinence, Hematuria, Retention, Flank Pain Musculoskeletal: Reports: No Symptoms. Denies: Neck Pain, Shoulder Pain, Arm Pain, Back Pain, Leg Pain Skin: Reports: No Symptoms. Denies: Diaphoresis Neurological: Reports: No Symptoms. Denies: Confusion, Dizziness, Headache, Numbness, Paresthesia, Tingling, Difficulty Walking, Weakness Psychiatric: Reports: No Symptoms. Denies: Confusion, Depression, Anxiety, Agitation, Cravings, Hallucinations - Patient Data Vitals - Most Recent: Last Vital Signs Temp 36.2 C 06/10/19 06:00 Pulse 110 H 06/10/19 06:00 Resp 18 06/10/19 06:00 BP 139/81 06/10/19 06:00 Pulse Ox 98 06/10/19 06:00 Vital Signs - 24 hr 06/09/19 06/10/19 06/10/19 23:36 02:42 02:46 Temperature [ 35.1 C L 36.6 C Temporal] Pulse, 108 H 105 H Peripheral [ Left Pulse Oximetry] Respiratory 20 20 Rate Blood Pressure 152/102 H 162/91 H [Right Upper Arm] O2 Sat by Pulse 99 99 99 Oximetry 06/10/19 06:00 Temperature [ 36.2 C Temporal] Pulse, 110 H Peripheral [ Left Pulse Oximetry] Respiratory 18 Rate Blood Pressure 139/81 [Right Upper Arm] O2 Sat by Pulse 98 Oximetry Weight - Most Recent: 117.934 kg Imaging Impressions - Last 24 hrs: CT scan of the abdomen and pelvis without contrast indicates cholelithiasis, including in the gallbladder neck with no evidence of obstruction. In addition, note multiple benign hepatic cysts. Diverticulosis also noted. In addition, note severe right-sided L4-L5 neural foraminal narrowing. Lab Results - Last 24 hrs: Laboratory Results - last 24 hr 06/09/19 06/10/19 06/10/19 Range/Units 23:49 00:15 00:15 WBC 8.5 (4.0-10.2) K/uL RBC 4.47 (4.33-5.41) M/uL Hgb 14.6 (13.1-16.8) g/dL Hct 42.6 (39.0-49.0) % MCV 95.3 (84.0-98.0) fL MCH 32.7 (28.2-33.3) pg MCHC 34.3 (31.7-36.0) g/dL RDW 13.5 (11.2-14.1) % Plt Count 317 (150-350) K/uL Neut % (Auto) 74.1 (45.0-80.0) % Lymph % (Auto) 15.2 (10.0-50.0) % Emanuel % (Auto) 6.6 (2.0-14.0) % Eos % (Auto) 0.7 (0.0-5.0) % Baso % (Auto) 3.4 H (0.0-2.0) % Neut # (Auto) 6.31 (1.40-7.00) K/uL Lymph # (Auto) 1.29 (0.50-3.50) K/uL Emanuel # (Auto) 0.56 (0.00-1.00) K/uL Eos # (Auto) 0.06 (0.00-0.50) K/uL Baso # (Auto) 0.29 H (0.00-0.20) K/uL D-Dimer, Quantitative (0-400) ng/mL Sodium 140 (136-145) mmol/L Potassium 4.2 (3.5-5.1) mmol/L Chloride 103 (98-107) mmol/L Carbon Dioxide 26.9 (21.0-32.0) mmol/L BUN 18 (7-18) mg/dL Creatinine 0.91 (0.51-1.17) mg/dL Est Cr Clr Drug Dosing 101.14 mL/min Estimated GFR (MDRD) > 60 mL/min Glucose 125 H (74-106) mg/dL Calcium 8.8 (8.5-10.1) mg/dL Magnesium (1.8-2.4) mg/dL Total Bilirubin 0.2 (0.2-1.0) mg/dL AST 21 (15-37) U/L ALT 33 (12-78) U/L Alkaline Phosphatase 81 (46-116) IU/L Total Protein 8.1 (6.4-8.2) g/dL Albumin 3.9 (3.4-5.0) g/dL Amylase (25-115) U/L Lipase (73-393) U/L TSH, Ultra Sensitive (0.358-3.740) mIU/mL Specimen Type Urinvoid Urine Color Light yellow Urine Appearance Cloudy Urine pH 7.0 (5.0-9.0) Ur Specific [place] 1.025 (1.005-1.030) Urine Protein Negative (NEGATIVE) mg/dL Urine Glucose (UA) Negative (NEGATIVE) mg/dL Urine Ketones Negative (NEGATIVE) mg/dL Urine Occult Blood Negative (NEGATIVE) Urine Nitrite Negative (NEGATIVE) Urine Bilirubin Negative (NEGATIVE) Urine Urobilinogen 0.2 (0.2-1.0) E.U./dL Ur Leukocyte Esterase Negative (NEGATIVE) Urine RBC 0-5 /HPF Urine WBC 0-5 /HPF Ur Epithelial Cells Rare /LPF Amorphous Sediment Moderate H (0/HPF) /HPF Urine Bacteria Not seen (NONE TO FEW) /HPF 06/10/19 06/10/19 06/10/19 Range/Units 00:15 00:15 00:15 WBC (4.0-10.2) K/uL RBC (4.33-5.41) M/uL Hgb (13.1-16.8) g/dL Hct (39.0-49.0) % MCV (84.0-98.0) fL MCH (28.2-33.3) pg MCHC (31.7-36.0) g/dL RDW (11.2-14.1) % Plt Count (150-350) K/uL Neut % (Auto) (45.0-80.0) % Lymph % (Auto) (10.0-50.0) % Emanuel % (Auto) (2.0-14.0) % Eos % (Auto) (0.0-5.0) % Baso % (Auto) (0.0-2.0) % Neut # (Auto) (1.40-7.00) K/uL Lymph # (Auto) (0.50-3.50) K/uL Emanuel # (Auto) (0.00-1.00) K/uL Eos # (Auto) (0.00-0.50) K/uL Baso # (Auto) (0.00-0.20) K/uL D-Dimer, Quantitative < 100 (0-400) ng/mL Sodium (136-145) mmol/L Potassium (3.5-5.1) mmol/L Chloride (98-107) mmol/L Carbon Dioxide (21.0-32.0) mmol/L BUN (7-18) mg/dL Creatinine (0.51-1.17) mg/dL Est Cr Clr Drug Dosing mL/min Estimated GFR (MDRD) mL/min Glucose (74-106) mg/dL Calcium (8.5-10.1) mg/dL Magnesium 1.9 (1.8-2.4) mg/dL Total Bilirubin (0.2-1.0) mg/dL AST (15-37) U/L ALT (12-78) U/L Alkaline Phosphatase (46-116) IU/L Total Protein (6.4-8.2) g/dL Albumin (3.4-5.0) g/dL Amylase (25-115) U/L Lipase (73-393) U/L TSH, Ultra Sensitive 1.374 (0.358-3.740) mIU/mL Specimen Type Urine Color Urine Appearance Urine pH (5.0-9.0) Ur Specific [place] (1.005-1.030) Urine Protein (NEGATIVE) mg/dL Urine Glucose (UA) (NEGATIVE) mg/dL Urine Ketones (NEGATIVE) mg/dL Urine Occult Blood (NEGATIVE) Urine Nitrite (NEGATIVE) Urine Bilirubin (NEGATIVE) Urine Urobilinogen (0.2-1.0) E.U./dL Ur Leukocyte Esterase (NEGATIVE) Urine RBC /HPF Urine WBC /HPF Ur Epithelial Cells /LPF Amorphous Sediment (0/HPF) /HPF Urine Bacteria (NONE TO FEW) /HPF 06/10/19 Range/Units 00:15 WBC (4.0-10.2) K/uL RBC (4.33-5.41) M/uL Hgb (13.1-16.8) g/dL Hct (39.0-49.0) % MCV (84.0-98.0) fL MCH (28.2-33.3) pg MCHC (31.7-36.0) g/dL RDW (11.2-14.1) % Plt Count (150-350) K/uL Neut % (Auto) (45.0-80.0) % Lymph % (Auto) (10.0-50.0) % Emanuel % (Auto) (2.0-14.0) % Eos % (Auto) (0.0-5.0) % Baso % (Auto) (0.0-2.0) % Neut # (Auto) (1.40-7.00) K/uL Lymph # (Auto) (0.50-3.50) K/uL Emanuel # (Auto) (0.00-1.00) K/uL Eos # (Auto) (0.00-0.50) K/uL Baso # (Auto) (0.00-0.20) K/uL D-Dimer, Quantitative (0-400) ng/mL Sodium (136-145) mmol/L Potassium (3.5-5.1) mmol/L Chloride (98-107) mmol/L Carbon Dioxide (21.0-32.0) mmol/L BUN (7-18) mg/dL Creatinine (0.51-1.17) mg/dL Est Cr Clr Drug Dosing mL/min Estimated GFR (MDRD) mL/min Glucose (74-106) mg/dL Calcium (8.5-10.1) mg/dL Magnesium (1.8-2.4) mg/dL Total Bilirubin (0.2-1.0) mg/dL AST (15-37) U/L ALT (12-78) U/L Alkaline Phosphatase (46-116) IU/L Total Protein (6.4-8.2) g/dL Albumin (3.4-5.0) g/dL Amylase 51 (25-115) U/L Lipase 122 (73-393) U/L TSH, Ultra Sensitive (0.358-3.740) mIU/mL Specimen Type Urine Color Urine Appearance Urine pH (5.0-9.0) Ur Specific [place] (1.005-1.030) Urine Protein (NEGATIVE) mg/dL Urine Glucose (UA) (NEGATIVE) mg/dL Urine Ketones (NEGATIVE) mg/dL Urine Occult Blood (NEGATIVE) Urine Nitrite (NEGATIVE) Urine Bilirubin (NEGATIVE) Urine Urobilinogen (0.2-1.0) E.U./dL Ur Leukocyte Esterase (NEGATIVE) Urine RBC /HPF Urine WBC /HPF Ur Epithelial Cells /LPF Amorphous Sediment (0/HPF) /HPF Urine Bacteria (NONE TO FEW) /HPF Med Orders - Current: Current Medications Ketorolac Tromethamine (Toradol) 30 mg IVPUSH Q6H LARY Stop: 06/15/19 06:01 Last Admin: 06/10/19 07:16 Dose: 30 mg Morphine Sulfate (Morphine) 2 mg IVPUSH Q1H PRN PRN Reason: Pain Last Admin: 06/10/19 02:08 Dose: 2 mg Ondansetron HCl (Zofran) 4 mg IVPUSH Q6H PRN PRN Reason: Nausea/Vomiting Sodium Chloride (Saline Flush) 10 ml FLUSH ASDIRECTED PRN PRN Reason: Keep Vein Open Discontinued Medications Cyclobenzaprine HCl (Flexeril) 10 mg PO ONETIME ONE Stop: 06/10/19 02:47 Last Admin: 06/10/19 03:13 Dose: 10 mg Sodium Chloride (Normal Saline) 1,000 mls @ 500 mls/hr IV .BOLUS ONE Stop: 06/10/19 02:13 Last Admin: 06/10/19 00:36 Dose: 500 mls/hr Ketorolac Tromethamine (Toradol) 30 mg IVPUSH ONETIME ONE Stop: 06/10/19 00:00 Last Admin: 06/10/19 00:01 Dose: 30 mg Methylprednisolone Sodium Succinate (Solu-Medrol) 125 mg IVPUSH ONETIME ONE Stop: 06/10/19 02:44 Last Admin: 06/10/19 03:13 Dose: 125 mg Morphine Sulfate (Morphine) 2 mg IVPUSH ONETIME ONE Stop: 06/10/19 00:14 Last Admin: 06/10/19 00:38 Dose: 2 mg Morphine Sulfate (Morphine) 4 mg IVPUSH ONETIME ONE Stop: 06/10/19 02:47 Last Admin: 06/10/19 03:13 Dose: 4 mg Ondansetron HCl (Zofran) 4 mg IVPUSH ONETIME ONE Stop: 06/10/19 00:14 Last Admin: 06/10/19 03:16 Dose: Not Given Tamsulosin HCl (Flomax) 0.4 mg PO ONETIME ONE Stop: 06/10/19 00:31 Last Admin: 06/10/19 00:38 Dose: 0.4 mg - Exam Quality Assessment: Reports: DVT Prophylaxis. Denies: Supplemental Oxygen, Central Line/PICC, Urine Catheter, Skin Breakdown General: Reports: Alert, Oriented, Cooperative, No Acute Distress HEENT: Reports: Pupils Equal, Pupils Reactive, EOMI, Mucous Membr. Moist/[place] Neck: Reports: Supple, Trachea Midline, No JVD, No Thyromegaly, +2 Carotid Pulse wo Bruit. Denies: Lymphadenopathy Lungs: Reports: Clear to Auscultation, Normal Respiratory Effort. Denies: Rub Cardiovascular: Reports: No Murmurs, Tachycardia (Regular rhythm). Denies: Murmurs, Gallops, Rubs GI/Abdominal Exam: Normal Bowel Sounds, Soft, Non-Tender, No Organomegaly, No Distention, No Abnormal Bruit, No Mass, Pelvis Stable, Other (Obese). No: Guarding (Male) Exam: Deferred Rectal (Males) Exam: Deferred Back Exam: Reports: Normal Inspection, Full Range of Motion. Denies: CVA Tenderness (L), CVA Tenderness (R), Muscle Spasm Extremities: Normal Inspection, Normal Range of Motion, Non-Tender, No Pedal Edema, Normal Capillary Refill. No: Jonh's Sign Skin: Reports: Warm, Dry, Intact. Denies: Ecchymosis Neurological: Reports: No New Focal Deficit Psy/Mental Status: Reports: Alert, Normal Affect, Normal Mood. Denies: Agitated , Hallucinations, Withdrawal Symptoms EKG INTERPRETATION EKG Date: 06/10/19 Time: 02:54 Rhythm: Other (Sinus tachycardia) Rate (Beats/Min): 102 [place]: Normal (Left) P-Wave: Present QRS: Normal (0.09 seconds with T-wave inversion in lead 3) ST-T: Normal QT: Normal TN/PQ Interval: 0.21 seconds representing a mild first-degree AV block Comparison: NA - No Prior EKG EKG Interpretation Comments: 1. No acute ischemic changes 2. Sinus tachycardia 3. First-degree AV block
--- NOTE | 2019-06-10 12:47 | PCM.SN ---
- Free Text/Narrative Note: Note Flexeril added to discharge prescriptions in discharge summary.
== END 2019-06-10 13:10 | disposition home or self-care (01) ==
LOC: LL.ED 23:35 → UNDOADMOB 06-10 02:24 → LL.MS 06-10 02:24
PROVIDERS: ADMIT Emergency Medicine; ATTEND Emergency Medicine
DX: M54.5 Low back pain (principal); I10 Essential (primary) hypertension; K80.20 Calculus of gallbladder without cholecystitis without obstruction; I44.0 Atrioventricular block, first degree; M19.90 Unspecified osteoarthritis, unspecified site; K76.89 Other specified diseases of liver; K57.90 Diverticulosis of intestine, part unspecified, without perforation or abscess without bleeding; E66.9 Obesity, unspecified; Z68.36 Body mass index [BMI] 36.0-36.9, adult; Z79.1 Long term (current) use of non-steroidal anti-inflammatories (NSAID)
CPT/HCPCS: 36415; 74176; 80053; 81001; 82150; 83690; 83735; 84443; 85025; 85379; 93005; 96361; 96374; 96375; 96376; 99285-25; A9270-GY; G0378; J1885; J2270; J2930; J7030

== ENCOUNTER 2019-06-16 20:07 | Emergency (ER) | payer BC ==
[2019-06-16] MEDS ORDERED: Ketorolac 60 MG/2 ML SDV IM ONE (20:40)
[2019-06-16] MEDS ORDERED: predniSONE 20 MG Tab PO ONE (20:40)
[2019-06-16] MEDS ORDERED: traMADol 50 MG Tab PO ONE (20:40)
--- NOTE | 2019-06-16 20:47 | EDM.PDOC ---
ED HPI GENERAL MEDICAL PROBLEM - General Chief Complaint: General Stated Complaint: Back Pain Time Seen by Provider: 06/16/19 20:30 Source of Information: Reports: Patient History Limitations: Reports: No Limitations - History of Present Illness INITIAL COMMENTS - FREE TEXT/NARRATIVE: Patient here with flare of mid back pain. Was seen for this last week. CT and extensive labs performed. Suspected to be due to muscular/skeletal etiology. Was to follow up with primary provider and discuss need for MRI. He says that he did follow up but no plan has been given to him. Has Mobic and Flexeril at home but not helpful for this flare. No changes in pain/pattern. No new numbness or tingling. Pain gets worse with movement/deep breath. Received steroids/MS/Toradol last week and did well on those, complete resolution of pain at time of discharge. Middle Back Pain Score (Numeric/FACES): 5 - Related Data Allergies Allergy/AdvReac Type Severity Reaction Status Date / Time No Known Allergies Allergy Verified 06/09/19 23:41 Home Meds: Home Meds Meloxicam [Mobic] 7.5 mg PO BID 06/09/19 [History] Atenolol [Tenormin] 25 mg PO DAILY #30 tablet 06/10/19 [Rx] Cyclobenzaprine [Flexeril] 10 mg PO TID PRN #30 tab 06/10/19 [Rx] Past Medical History Cardiovascular History: Reports: None Musculoskeletal History: Reports: Arthritis, Back Pain, Chronic, Fracture, Osteoarthritis, Other (See Below) Other Musculoskeletal History: Previous left knee meniscal tear requiring arthroscopic surgery in about 2009 as below. Previous midshaft left leg angulated open tibial fracture in his early 20s requiring surgery as below. Endocrine/Metabolic History: Reports: Obesity/BMI 30+ - Infectious Disease History Infectious Disease History: Reports: Chicken Pox, Measles - Past Surgical History HEENT Surgical History: Reports: Oral Surgery, Other (See Below) Other HEENT Surgeries/Procedures: Multiple teeth extractions Male Surgical History: Reports: Circumcision, Other (See Below) Other Male Surgeries/Procedures: Circumcision as an infant. Musculoskeletal Surgical History: Reports: Arthroscopic Knee, Arthroscopic Procedure, ORIF, Other (See Below) Other Musculoskeletal Surgeries/Procedures:: Arthroscopic left knee meniscal repair in about 2009. ORIF of the left tibial fracture in his early 20s as above. 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 ED EXAM, GENERAL - Physical Exam Exam: See Below Exam Limited By: No Limitations General Appearance: Alert, WD/WN, Moderate Distress, Obese Eye Exam: Bilateral Eye: EOMI, PERRL Ears: Hearing Grossly Normal Throat/Mouth: Normal Voice, No Airway Compromise Head: Atraumatic, Normocephalic Neck: Supple, Non-Tender, Full Range of Motion Respiratory/Chest: No Respiratory Distress, Lungs Clear, Normal Breath Sounds, No Accessory Muscle Use, Chest Non-Tender Cardiovascular: Regular Rate, Rhythm, No Murmur GI/Abdominal: Normal Bowel Sounds, Soft, Non-Tender, No Distention (Male) Exam: Deferred Rectal (Males) Exam: Deferred Back Exam: Vertebral Tenderness (mild, thoraco-lumbar junction. Palpation in this area reproduces pain complaint. ). No: CVA Tenderness (L), Muscle Spasm, Paraspinal Tenderness Extremities: Normal Range of Motion, Non-Tender, Normal Capillary Refill Neurological: Alert, Oriented, Normal Cognition, Normal Gait, No Motor/Sensory Deficits Psychiatric: Anxious Skin Exam: Warm, Dry, Intact, Normal Color Course - Vital Signs Last Recorded V/S: Last Vital Signs Temp 35.5 C 06/16/19 20:10 Pulse 95 06/16/19 20:10 Resp 16 06/16/19 20:10 BP 138/96 H 06/16/19 20:10 Pulse Ox 100 06/16/19 20:10 - Orders/Labs/Meds Meds: Medications Discontinued Medications Generic Name Dose Route Start Last Admin Trade Name Freq PRN Reason Stop Dose Admin Ketorolac Tromethamine 60 mg 06/16/19 20:40 06/16/19 20:51 Toradol IM 06/16/19 20:41 60 mg ONETIME ONE Administration Prednisone 40 mg 06/16/19 20:40 06/16/19 20:50 Prednisone PO 06/16/19 20:41 40 mg ONETIME ONE Administration Tramadol HCl 50 mg 06/16/19 20:40 06/16/19 20:51 Ultram PO 06/16/19 20:41 50 mg ONETIME ONE Administration - Re-Assessments/Exams Free Text/Narrative Re-Assessment/Exam: 06/16/19 20:49 Unable to elicit much tenderness during physical exam/palpation, similar to last week. No abdominal pain/findings. At this time will focus on pain relief given last week's extensive workup which included normal amylase/lipase/ddimer/ CBC/Chem and CT exam. He is to follow up closely with his primary provider and discuss additional workup including MRI of thoraco-lumbar area given the persistence of his symptoms and level of discomfort. 0 Departure - Departure Time of Disposition: 21:35 Disposition: Home, Self-Care 01 Condition: Good Clinical Impression: Mid-back pain, acute - Discharge Information *PRESCRIPTION DRUG MONITORING PROGRAM REVIEWED*: Not Applicable *COPY OF PRESCRIPTION DRUG MONITORING REPORT IN PATIENT MIRNA: Not Applicable Referrals: PCP,None [Primary Care Provider] - Forms: ED Department Discharge, ED Return to Work/School Form Additional Instructions: Call your provider tomorrow and tell them you had an acute flare of back pain and needed to come to ER. See if they will schedule you for MRI study to look for spine and nerve problems in this area. Additional testing may be needed to figure out what is causing the pain if the MRI is normal. Follow up otherwise as needed if you have additional worsening problems. Sepsis Event Note - Evaluation Sepsis Screening Result: No Definite Risk - Focused Exam Date Exam was Performed: 06/22/19 Time Exam was Performed: 19:57
== END 2019-06-16 21:42 | disposition home or self-care (01) ==
LOC: LL.ED 20:07
DX: M54.6 Pain in thoracic spine (principal); M19.90 Unspecified osteoarthritis, unspecified site; E66.9 Obesity, unspecified; Z79.899 Other long term (current) drug therapy
CPT/HCPCS: 96372; 99283-25; A9270-GY; J1885

== ENCOUNTER 2022-09-17 09:47 | Inpatient (IN) | payer BC ==
[2022-09-17 11:08] LABS: HEMATOCRIT 48.6 % (39.0-49.0); HEMOGLOBIN 16.3 g/dL (13.1-16.8); MEAN CORPUSCULAR HEMOGLOBIN 32.8 pg (28.2-33.3); MEAN CORPUSCULAR HGB CONC 33.5 g/dL (31.7-36.0); MEAN CORPUSCULAR VOLUME 97.8 fL (84.0-98.0); PLATELET COUNT,PLT 290 K/uL (150-350); RED BLOOD CELL COUNT 4.97 M/uL (4.33-5.41); RED CELL DISTRIBUTION WIDTH 14.8 % (11.2-14.1); WHITE BLOOD CELL COUNT,WBC 7.6 K/uL (4.0-10.2)
[2022-09-17 11:24] LABS: BAND PERCENT MAN 4; EOSINOPHILS PERCENT MAN 2; LYMPHOCYTES PERCENT MAN 15; MONOCYTES PERCENT MAN 2; SEG NEUTROPHILS PERCENT MAN 77
[2022-09-17 11:30] LABS: ALANINE AMINOTRANSFERASE,ALT 21 U/L (12-78); ALBUMIN 3.7 g/dL (3.4-5.0); ALKALINE PHOSPHATASE 94 IU/L (46-116); ANION GAP 8.1 meq/L (7-15); ASPARTATE AMNIOTRANSFERASE,AST 18 U/L (15-37); BILIRUBIN TOTAL 0.6 mg/dL (0.2-1.0); BLOOD UREA NITROGEN,BUN 13 mg/dL (7-18); C-REACTIVE PROTEIN 0.6 mg/dL (<=0.9); CALCIUM 9.7 mg/dL (8.5-10.1); CARBON DIOXIDE,CO2 28.9 mmol/L (21.0-32.0); CHLORIDE,CL 100 mmol/L (98-107); CREATININE 0.92 mg/dL (0.51-1.17); GLUCOSE RANDOM 111 mg/dL (70-99); PRO B-TYPE NATRIUR PEPT,BNPPRO 44 pg/mL (0-125); PROTEIN TOTAL,TP 8.8 g/dL (6.4-8.2); SODIUM,NA 137 mmol/L (136-145)
[2022-09-17 11:31] LABS: ESTIMATED GFR 98 mL/min (>=60)
[2022-09-17 11:32] LABS: TSH ULTRASENSITIVE 0.395 mIU/mL (0.358-3.740)
[2022-09-17] MEDS ORDERED: Adenosine 6 MG/2 ML SDV IVPUSH ONE ×2 (11:32→12:07)
[2022-09-17] MEDS: Sodium Chloride 0.9% 10 ML Syringe FLUSH PRN ×5 (11:32→16:17)
[2022-09-17] MEDS ORDERED: Acetaminophen 325 MG Tab PO PRN (13:31)
[2022-09-17] MEDS ORDERED: Polyethylene Glycol 3350 Powder 17 GM Packet PO PRN (13:31)
[2022-09-17] MEDS ORDERED: Ondansetron 4 MG Tab.DIS PO PRN (13:31)
[2022-09-17] MEDS: cefTRIAXone 2 GM in Sodium Chloride 0.9% 100 ML IV SCH (14:12)
[2022-09-17] MEDS: Azithromycin 500 MG in Sodium Chloride 0.9% 250 ML IV SCH (14:56)
[2022-09-17] MEDS: Metoprolol Succinate 50 MG Tab.ER PO SCH (15:18)
[2022-09-18 07:42] LABS: HEMATOCRIT 46.2 % (39.0-49.0); HEMOGLOBIN 15.2 g/dL (13.1-16.8); MEAN CORPUSCULAR HEMOGLOBIN 32.5 pg (28.2-33.3); MEAN CORPUSCULAR HGB CONC 32.9 g/dL (31.7-36.0); MEAN CORPUSCULAR VOLUME 98.9 fL (84.0-98.0); PLATELET COUNT,PLT 292 K/uL (150-350); RED BLOOD CELL COUNT 4.67 M/uL (4.33-5.41); RED CELL DISTRIBUTION WIDTH 14.8 % (11.2-14.1); WHITE BLOOD CELL COUNT,WBC 6.8 K/uL (4.0-10.2)
[2022-09-18] MEDS: Enoxaparin 40 MG/0.4 ML Syringe SUBCUT SCH (07:53)
[2022-09-18] MEDS: Metoprolol Succinate 50 MG Tab.ER PO SCH (07:53)
[2022-09-18 08:14] LABS: CALCIUM 9.2 mg/dL (8.5-10.1); CARBON DIOXIDE,CO2 29.2 mmol/L (21.0-32.0); CREATININE 0.85 mg/dL (0.51-1.17); EST CRCL DRUG DOSING (CG) 101.39 mL/min
[2022-09-18 08:23] LABS: ANION GAP 9.8 meq/L (7-15)
[2022-09-18] MEDS: Sodium Chloride 0.9% 10 ML Syringe FLUSH PRN ×2 (13:19→15:05)
[2022-09-18] MEDS: cefTRIAXone 2 GM in Sodium Chloride 0.9% 100 ML IV SCH (13:19)
[2022-09-18] MEDS: Azithromycin 500 MG in Sodium Chloride 0.9% 250 ML IV SCH (13:59)
[2022-09-19 07:43] LABS: CALCIUM 9.2 mg/dL (8.5-10.1); CARBON DIOXIDE,CO2 33.2 mmol/L (21.0-32.0); CREATININE 0.78 mg/dL (0.51-1.17); EST CRCL DRUG DOSING (CG) 110.49 mL/min; POTASSIUM,K 4.6 mmol/L (3.5-5.1)
[2022-09-19 07:45] LABS: ANION GAP 7.4 meq/L (7-15)
[2022-09-19] MEDS: Metoprolol Succinate 50 MG Tab.ER PO SCH (07:50)
[2022-09-19] MEDS: Enoxaparin 40 MG/0.4 ML Syringe SUBCUT SCH (07:50)
[2022-09-19 08:27] LABS: HEMATOCRIT 45.8 % (39.0-49.0); HEMOGLOBIN 15.5 g/dL (13.1-16.8); MEAN CORPUSCULAR HEMOGLOBIN 33.4 pg (28.2-33.3); MEAN CORPUSCULAR VOLUME 98.7 fL (84.0-98.0); RED BLOOD CELL COUNT 4.64 M/uL (4.33-5.41)
[2022-09-19 08:28] LABS: MEAN CORPUSCULAR HGB CONC 33.8 g/dL (31.7-36.0); PLATELET COUNT,PLT 284 K/uL (150-350); RED CELL DISTRIBUTION WIDTH 14.6 % (11.2-14.1)
[2022-09-19] MEDS ORDERED: Iopamidol 755 Mg/ML 100 ML Bottle IVPUSH STA (09:43)
[2022-09-19] MEDS: Sodium Chloride 0.9% 10 ML Syringe FLUSH PRN (13:22)
[2022-09-19] MEDS: cefTRIAXone 2 GM in Sodium Chloride 0.9% 100 ML IV SCH (13:22)
[2022-09-19] MEDS: Azithromycin 500 MG in Sodium Chloride 0.9% 250 ML IV SCH (13:30)
[2022-09-19 14:46] LABS: PCO2 ARTERIAL,POC 41 mmHg (35-48); PH ARTERIAL,POC 7.4 pH (7.35-7.45)
[2022-09-19 14:51] LABS: BASE EXCESS ARTERIAL,POC 8 mmol/L (-2-3); HCO3 ARTERIAL,POC 26.4 mmol/L (22-26); PO2 ARTERIAL,POC 58 mmHg (83-108); TCO2 ARTERIAL,POC 25.4 mmol/L (23-27)
== END 2022-09-19 16:05 | DRG 139 ==
LOC: LL.ED 09:47 → LL.MS 12:40
PROVIDERS: ADMIT Hospitalist; ATTEND Hospitalist
DX: J18.9 Pneumonia, unspecified organism (principal); J96.01 Acute respiratory failure with hypoxia; E66.9 Obesity, unspecified; G47.33 Obstructive sleep apnea (adult) (pediatric); M54.9 Dorsalgia, unspecified; G89.29 Other chronic pain; M19.90 Unspecified osteoarthritis, unspecified site; Z87.891 Personal history of nicotine dependence
CPT/HCPCS: 36415; 36600; 71046; 71275; 80048; 80053; 82803; 83880; 84443; 84484; 85025; 85027; 86140; 93005; 93010; 94761; 96374; 96376; 99233; 99239; 99285-25; A9270-GY; J0153; J0456; J0696; J1650; J3490; J7050; Q9967

== ENCOUNTER 2024-01-27 19:45 | Emergency (ER) | payer MEDICAID ==
[~2024-01-27 19:45] MED LIST: Etomidate 2 MG/ML 10 ML SDV IVPUSH ONE; Ketamine 500 mg/10 ML MDV IV ONE; Lidocaine 2% 100 MG/5 ML Syringe IVPUSH ONE; Midazolam 1 MG/ML 2 ML SDV IV ONE; Rocuronium 100 MG/10 ML MDV IVPUSH ONE; Sodium Chloride 0.9% 10 ML Syringe FLUSH PRN; Succinylcholine 200 MG/10 ML MDV IVPUSH ONE; fentaNYL 100 MCG/2 ML SDV IVPUSH ONE
[2024-01-27 20:20] LABS: HEMATOCRIT 42.7 % (39.0-49.0); HEMOGLOBIN 13.9 g/dL (13.1-16.8); MEAN CORPUSCULAR HEMOGLOBIN 32.6 pg (28.2-33.3); MEAN CORPUSCULAR HGB CONC 32.6 g/dL (31.7-36.0); MEAN CORPUSCULAR VOLUME 100.2 fL (84.0-98.0); PLATELET COUNT,PLT 221 K/uL (150-350); RED BLOOD CELL COUNT 4.26 M/uL (4.33-5.41); RED CELL DISTRIBUTION WIDTH 15.6 % (11.2-14.1); WHITE BLOOD CELL COUNT,WBC 8.5 K/uL (4.0-10.2)
[2024-01-27 20:37] LABS: ALANINE AMINOTRANSFERASE,ALT 25 U/L (12-78); ALBUMIN 2.9 g/dL (3.4-5.0); ALKALINE PHOSPHATASE 91 IU/L (46-116); ASPARTATE AMNIOTRANSFERASE,AST 26 U/L (15-37); BILIRUBIN TOTAL 0.5 mg/dL (0.2-1.0); BLOOD UREA NITROGEN,BUN 10 mg/dL (7-18); CARBON DIOXIDE,CO2 38.9 mmol/L (21.0-32.0); CHLORIDE,CL 100 mmol/L (98-107); CREATININE 0.69 mg/dL (0.51-1.17); GLUCOSE RANDOM 139 mg/dL (70-99); POTASSIUM,K 3.9 mmol/L (3.5-5.1); PROTEIN TOTAL,TP 7.4 g/dL (6.4-8.2); SODIUM,NA 140 mmol/L (136-145)
[2024-01-27] MEDS: Iopamidol 755 Mg/ML 100 ML Bottle IVPUSH ONE (20:38)
[2024-01-27 20:39] LABS: LACTIC ACID 1.6 mmol/L (0.4-2.0)
[2024-01-27 20:40] LABS: ESTIMATED GFR 108 mL/min (>=60)
[2024-01-27 20:50] LABS: EOSINOPHILS PERCENT MAN 3; LYMPHOCYTES PERCENT MAN 11; MONOCYTES PERCENT MAN 2; SEG NEUTROPHILS PERCENT MAN 84
[2024-01-27 21:03] LABS: CORONAVIRUS COVID-19 NAA NEGATIVE (NEGATIVE); INFLUENZA A NAA NEGATIVE (NEGATIVE); INFLUENZA B NAA NEGATIVE (NEGATIVE); RESPIRATORY SYNCYTIAL VIR NAA NEGATIVE (NEGATIVE)
[2024-01-27] MEDS: Sodium Chloride 0.9% 1,000 ML IV SCH (21:43)
[2024-01-27] MEDS: LORazepam 2 MG/ML SDV IVPUSH ONE (23:32)
[2024-01-27] MEDS ORDERED: Succinylcholine 200 MG/10 ML MDV ONE (23:46)
[2024-01-27] MEDS ORDERED: Albuterol/Ipratropium 3.0-0.5 MG/3 ML Neb Soln ONE (23:47)
[2024-01-28] MEDS ORDERED: Midazolam 1 MG/ML 2 ML SDV ONE ×2 (00:18→00:23)
[2024-01-28] MEDS ORDERED: Ketamine 500 mg/10 ML MDV ONE ×2 (00:26→01:55)
[2024-01-28] MEDS ORDERED: Rocuronium 100 MG/10 ML MDV ONE ×2 (00:26→00:35)
[2024-01-28] MEDS ORDERED: Norepinephrine Bit/D5W Premix 250 ML IV SCH (01:00)
[2024-01-28] MEDS ORDERED: Hydrocortisone Sodium Succinate 100 MG/2 ML SDV IVPUSH ONE (01:10)
[2024-01-28 04:02] VITALS: BP 105/78; PULSE 118
== END 2024-01-28 02:17 ==
LOC: LL.ED 19:45
DX: J96.01 Acute respiratory failure with hypoxia (principal); J84.9 Interstitial pulmonary disease, unspecified; I10 Essential (primary) hypertension; I25.10 Atherosclerotic heart disease of native coronary artery without angina pectoris; R00.0 Tachycardia, unspecified; E66.9 Obesity, unspecified; Z79.899 Other long term (current) drug therapy; Z95.5 Presence of coronary angioplasty implant and graft; Z79.82 Long term (current) use of aspirin
CPT/HCPCS: 0241U; 31500; 36415; 51702; 71045; 71275; 80053; 83605; 83880; 84484; 85025; 85379; 87040; 93005; 96361; 96365; 96375; 99284; 99291-25; 99292; J0330; J1720; J2060; J2250; J3010; J3490; J7030; Q9967

== ENCOUNTER 2024-02-06 08:55 | Inpatient (IN) | payer MEDICAID ==
[2024-02-07] MEDS: Metoprolol Tartrate 25 MG Tab PO SCH (18:45)
[2024-02-07] MEDS: Budesonide 0.5 MG/2 ML Neb Susp INH SCH (19:11)
[2024-02-08] MEDS: Acetaminophen 325 MG Tab PO PRN (00:39)
[2024-02-08] MEDS ORDERED: Non-Formulary Medication 1 Each (Prednisone [Prednisone] 10 MG Tablet) PO SCH (08:00)
[2024-02-08] MEDS: Clopidogrel 75 MG Tab PO SCH (08:34)
[2024-02-08] MEDS: PREDNISONE 10MG TABLETS PO SCH (08:35)
[2024-02-08] MEDS: Sulfamethoxazole/Trimethoprim 800-160 MG Tab PO SCH (08:35)
[2024-02-08] MEDS: FLUoxetine 20 MG Cap PO SCH (08:35)
[2024-02-08] MEDS: atorvaSTATin 40 MG Tab PO SCH (08:35)
[2024-02-08] MEDS: Aspirin 81 MG Tab.Chew PO SCH (08:53)
[2024-02-08] MEDS: hydrOXYzine HCl 25 MG Tab PO PRN (18:05)
[2024-02-08] MEDS: Melatonin 3 MG Tab PO PRN (19:59)
[2024-02-09] MEDS: Polyethylene Glycol 3350 Powder 510 GM Bot PO SCH (08:07)
[2024-02-09] MEDS: atorvaSTATin 40 MG Tab PO SCH (19:43)
[2024-02-10] MEDS ORDERED: Bisacodyl 10 MG Supp RECTAL PRN (14:26)
[2024-02-10] MEDS: Albuterol/Ipratropium 3.0-0.5 MG/3 ML Neb Soln INH PRN (18:25)
[2024-02-11] MEDS ORDERED: PREDNISONE 10MG TABLETS PO SCH (08:00)
[2024-02-18] MEDS ORDERED: PREDNISONE 10MG TABLETS PO SCH (08:00)
[2024-02-25] MEDS ORDERED: PREDNISONE 10MG TABLETS PO SCH (08:00)
[2024-03-03] MEDS ORDERED: PREDNISONE 10MG TABLETS PO SCH (08:00)
[2024-03-10] MEDS ORDERED: PREDNISONE 10MG TABLETS PO SCH (08:00)
== END 2024-02-10 21:27 | DRG 189 ==
LOC: LL.SWG 02-07 12:15
PROVIDERS: ADMIT Student in an Organized Health Care Education/Training Program; ATTEND Student in an Organized Health Care Education/Training Program
DX: J96.21 Acute and chronic respiratory failure with hypoxia (principal); J84.9 Interstitial pulmonary disease, unspecified; D84.9 Immunodeficiency, unspecified; E66.9 Obesity, unspecified; I10 Essential (primary) hypertension; I25.10 Atherosclerotic heart disease of native coronary artery without angina pectoris; F41.9 Anxiety disorder, unspecified; M19.90 Unspecified osteoarthritis, unspecified site; G89.29 Other chronic pain; M54.9 Dorsalgia, unspecified; E78.2 Mixed hyperlipidemia; Z95.5 Presence of coronary angioplasty implant and graft; Z68.25 Body mass index [BMI] 25.0-25.9, adult; Z79.82 Long term (current) use of aspirin; Z99.81 Dependence on supplemental oxygen; Z79.52 Long term (current) use of systemic steroids; Z79.02 Long term (current) use of antithrombotics/antiplatelets; Z79.899 Other long term (current) drug therapy; Z98.890 Other specified postprocedural states
CPT/HCPCS: 94640; 94761; 97162-GP; 97165-GO; A9270-GY; J3490; J7620-GY

== ENCOUNTER 2024-02-10 18:35 | Emergency (ER) | payer MEDICAID ==
[2024-02-10] MEDS ORDERED: methylPREDNISolone Sodium Succinate 125 MG/2 ML SDV ONE (18:50)
[2024-02-10] MEDS ORDERED: Albuterol/Ipratropium 3.0-0.5 MG/3 ML Neb Soln ONE ×3 (18:50→19:10)
[2024-02-10 19:00] LABS: HEMATOCRIT 39.6 % (39.0-49.0); HEMOGLOBIN 12.6 g/dL (13.1-16.8); MEAN CORPUSCULAR HEMOGLOBIN 32.5 pg (28.2-33.3); MEAN CORPUSCULAR HGB CONC 31.8 g/dL (31.7-36.0); MEAN CORPUSCULAR VOLUME 102.1 fL (84.0-98.0); PLATELET COUNT,PLT 270 K/uL (150-350); RED BLOOD CELL COUNT 3.88 M/uL (4.33-5.41); RED CELL DISTRIBUTION WIDTH 16.5 % (11.2-14.1); WHITE BLOOD CELL COUNT,WBC 11.7 K/uL (4.0-10.2)
[2024-02-10] MEDS ORDERED: Furosemide 40 MG/4 ML VIAL IVPUSH ONE (19:11)
[2024-02-10 19:22] LABS: ALANINE AMINOTRANSFERASE,ALT 38 U/L (12-78); ALKALINE PHOSPHATASE 67 IU/L (46-116); ASPARTATE AMNIOTRANSFERASE,AST 20 U/L (15-37); BILIRUBIN TOTAL 0.3 mg/dL (0.2-1.0); BLOOD UREA NITROGEN,BUN 13 mg/dL (7-18); CALCIUM 8.5 mg/dL (8.5-10.1); CHLORIDE,CL 97 mmol/L (98-107); CREATININE 0.57 mg/dL (0.51-1.17); GLUCOSE RANDOM 183 mg/dL (70-99); POTASSIUM,K 4.6 mmol/L (3.5-5.1); PROTEIN TOTAL,TP 6.3 g/dL (6.4-8.2); SODIUM,NA 140 mmol/L (136-145)
[2024-02-10 19:31] LABS: ANION GAP 6.6 meq/L (7-15); ESTIMATED GFR 114 mL/min (>=60)
[2024-02-10 19:35] LABS: O2 DELIVERY DEVICE HI FLOW NASAL CANNU; PH,VENOUS 7.45 (7.31-7.41)
[2024-02-10 19:36] LABS: BASE EXCESS VENOUS 11 mmol/L ((-2)-3); BICARBONATE,VENOUS 37 mmol/L (23-28); O2 SATURATION VENOUS 99 %; PCO2 VENOUS 52 mmHG (41-51); PO2 VENOUS 115 mmHG
[2024-02-10 19:44] LABS: LYMPHOCYTES PERCENT MAN 10; SEG NEUTROPHILS PERCENT MAN 90
[2024-02-10] MEDS: LORazepam 2 MG/ML SDV IVPUSH ONE (19:50)
[2024-02-10] MEDS: Sodium Chloride 0.9% 10 ML Syringe FLUSH PRN (19:50)
[2024-02-10] MEDS: cefTRIAXone 2 GM Vial IVPUSH ONE (20:49)
== END 2024-02-10 21:27 ==
LOC: LL.ED 18:35
DX: J96.01 Acute respiratory failure with hypoxia (principal); F41.9 Anxiety disorder, unspecified; E66.9 Obesity, unspecified; Z79.82 Long term (current) use of aspirin; Z79.899 Other long term (current) drug therapy
CPT/HCPCS: 36415; 71045; 80053; 82803; 83605; 83735; 83880; 84484; 85025; 85379; 93005; 93010; 96374; 96375; 99284; 99285-25; J0696; J1940; J2060; J2919; J3490; J7620-GY; U0002